=== PATIENT | female | born 1965 | race African-American/Black ===

== ENCOUNTER 2019-08-17 20:16 | Inpatient (IN) | payer BC, OTHER ==
[2019-08-17] MEDS ORDERED: Acetaminophen 500 MG TAB ONE ×2 (20:32→20:36)
[2019-08-17] MEDS ORDERED: Adacel (T-DAP) 0.5 ML SYRINGE ONE (20:32)
[2019-08-17] MEDS ORDERED: Bacitracin 1 PK ONE (20:58)
[2019-08-17] MEDS ORDERED: Lidocaine 1% w/Epinephrine 1:100K 20 ML VIAL ONE (20:58)
[2019-08-17] MEDS ORDERED: Lidocaine 1% (PF) 30 ML VIAL ONE (21:00)
--- NOTE | 2019-08-17 21:09 | RAD ---
XR Hand Lt 3 View STANDARD: 08/17/2019 8:27 PM CLINICAL INDICATION: Fall while running COMPARISON: None. FINDINGS: Bones: No acute osseous abnormality. Joints: Joint spaces are preserved. Soft Tissue: Soft tissues are normal appearing. IMPRESSION: No acute osseous abnormality..
--- NOTE | 2019-08-17 21:10 | RAD ---
Chest AP view INDICATION: Fall while running with chest pain COMPARISON: None FINDINGS: Lungs: The lungs are clear Cardiac silhouette: The cardiomediastinal silhouette appears within normal limits. Pulmonary vasculature: Normal Pleural spaces: No pleural effusion or pneumothorax is demonstrated. Upper abdomen: No abnormality seen. Osseous structures: No acute osseous abnormality. Additional findings: None. IMPRESSION: No acute cardiopulmonary abnormality.
--- NOTE | 2019-08-17 21:12 | RAD ---
EXAM: XR Humerus Lt 2 View STANDARD DATE: 08/17/2019 8:29 PM INDICATION: Fall while running COMPARISON: None. FINDING: There is a comminuted, mild to moderately displaced for part proximal humerus fracture. The humeral head articular surface is rotated 90 degrees cephalad. The greater tuberosity is fractured into 2 separate fragments and are mildly displaced. No additional fracture is grossly evident. IMPRESSION:Comminuted, four-part proximal left humerus fracture
[2019-08-17] MEDS ORDERED: Ketorolac Tromethamine 30 MG/ML VIAL ONE (22:16)
[2019-08-17 22:21] LABS: #Basophils 0.1 thou/uL (0.0-0.2); #Eosinphils 0.1 thou/uL (0.0-0.7); #Lymphocytes 1.7 thou/uL (1.20-3.40); #Monocytes 0.3 thou/uL (0.11-0.59); #Neutrophils 3.8 thou/uL (1.40-6.50); %Basophils 0.9 % (0.0-1.0); %Eosinophils 1.3 % (0.0-10.0); %Neutrophils 64.7 % (42.0-75.0); Hemoglobin 12.8 g/dL (12.0-16.0); Mean Corpuscular HGB CONC 32.1 g/dL (32.0-36.0); Mean Corpuscular Hemoglobin 27.3 pg (27.0-31.0); Mean Corpuscular Volume 85.2 fL (78.0-98.0); Mean Platelet Volume 8.3 fL (7.4-10.4); Platelet Count 208 thou/uL (130-400); RBC Distribution Width 11.9 % (11.5-14.5); Red Blood Cell (RBC) Count 4.67 mill/uL (4.20-5.40); White Blood Cell (WBC) Count 5.9 thou/uL (4.8-10.8)
[2019-08-17 22:26] LABS: INR-International Normal Ratio 0.9; PTT 26.3 sec (22.9-36.1); Prothrombin Time 12.4 sec (12.0-14.7)
[2019-08-17 22:28] LABS: BHCG - Serum Negative (NEGATIVE); Pregs Control Background? CLEAR/WHITE (CLR/WHITE); Pregs Control Bar Appear? YES (CONTROL BAR)
--- NOTE | 2019-08-17 22:36 | HP ---
REQUESTING PHYSICIAN: Mode Pisano DO ATTENDING SURGEON: Abdullahi Mcconnell MD CONSULTATIONS: Orthopedics, Naren Billingsley MD HISTORY OF PRESENT ILLNESS: The patient is a 54-year-old woman, who was running when she caught her foot on an uneven piece of sidewalk, falling forward on her left outstretched hand. She denied any loss of consciousness, but did experience immediate pain to her left hand and left shoulder. The patient was brought to the Emergency Department by privately owned vehicle, where she underwent evaluation and examination and was noted to have laceration to her left small finger on the palmar surface and the palmar aspect of her left hand. She is right-hand dominant. She also had fracture to the proximal humerus at which time, we were asked to evaluate the patient for admission and obtain Orthopedic consultation. The patient underwent irrigation and suturing of her lacerations in the Emergency Department. She received a tetanus and 2 g of Ancef. ALLERGIES: NONE. CURRENT MEDICATIONS: 1. Coreg. 2. Benicar. 3. Lipitor. PAST MEDICAL HISTORY: Hypertension and hyperlipidemia. PAST SURGICAL HISTORY: Tubal ligation. SOCIAL HISTORY: The patient denies drug, tobacco, or alcohol use. 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 REVIEW OF SYSTEMS: Negative as otherwise stated. PHYSICAL EXAMINATION: VITAL SIGNS: Blood pressure is 152/92, heart rate 72, respirations 18, oxygen saturation is 100% on room air, and temperature is 98.4. GENERAL: The patient is resting comfortably in bed. She is awake, alert, and oriented x3. Flor Coma Scale is 15. She is currently undergoing repair of her lacerations on her left hand. HEENT: Head is normocephalic and atraumatic. Eyes, extraocular motion intact. PERRLA bilaterally. Ears are atraumatic without discharge. Nose is atraumatic without discharge oropharynx is clear. NECK: Nontender. Trachea is midline with no JVD. CHEST: Clear to auscultation with good inspiratory and expiratory effort. HEART: Regular rate and rhythm. ABDOMEN: Soft, flat, and nontender with active bowel sounds. EXTREMITIES: Neurovascularly intact x4. Left upper extremity has tenderness to palpation to the shoulder area consistent with her proximal humerus fracture. Her left hand on the palmar aspect has approximately 4 cm laceration at the thenar eminence and a laceration to the proximal small finger digit overlying the proximal phalanx. She is neurovascularly intact in this extremity. BACK: Atraumatic and nontender. LABORATORY DATA: Labs are pending. RADIOGRAPHS: AP chest x-ray shows no acute cardiopulmonary abnormality. Views of the left humerus show a comminuted 4-part proximal humerus fracture. Views of the left hand show no acute osseous abnormality. ASSESSMENT AND PLAN: 1. Status post ground level fall while running. 2. Left proximal humerus fracture. 3. Laceration to hand x2, repaired in the Emergency Department. 4. Acute pain secondary to above. 5. History of hyperlipidemia and hypertension. Plan will be to admit the patient to the surgical floor. We make her n.p.o. after midnight. We will do pain control, pulmonary toilet, gastritis and mechanical venous thromboembolism prophylaxis. The patient will have her left upper extremity placed in the sling. She will be made n.p.o. after midnight. She will be evaluated by Orthopedics in the morning with likely a surgical plan for tomorrow. Dr. Billingsley has been notified. The evaluation, examination, laboratory, and radiographic findings will be discussed with Dr. Mcconnell after this dictation. Job ID: [id number]
[2019-08-17] MEDS ORDERED: Morphine 2 MG/ML SYRINGE ONE (22:40)
[2019-08-17 22:44] LABS: ALT (SGPT) 30 U/L (8-55); AST (SGOT) 51 U/L (5-34); Albumin 4.3 g/dL (3.5-5.0); Alkaline Phosphatase 80 U/L (40-110); Anion Gap 13 mmol/L (10-20); BUN (Urea Nitrogen) 11 mg/dL (9.8-20.1); Bilirubin, Total 0.5 mg/dL (0.2-1.2); Calc. Creatinine Clearance 0 mL/min (70-130); Calcium 9.9 mg/dL (7.8-10.44); Carbon Dioxide 28 mmol/L (22-29); Chloride 106 mmol/L (98-107); Estimated GFR-MDRD 67; Globulin 2.9 g/dL (2.4-3.5); Glucose 100 mg/dL (70-105); Potassium 3.6 mmol/L (3.5-5.1); Protein, Total 7.2 g/dL (6.0-8.3); Sodium 143 mmol/L (136-145)
[2019-08-17] MEDS ORDERED: Carvedilol 6.25 MG TAB PO SCH (23:00)
[2019-08-17] MEDS ORDERED: Morphine 4 MG/ML VIAL ONE (23:06)
[2019-08-17] MEDS ORDERED: Morphine 2 MG/ML VIAL SLOW IVP PRN (23:40)
[2019-08-17] MEDS ORDERED: traMADol HCl 50 MG TAB PO PRN ×2 (23:40)
[2019-08-17] MEDS ORDERED: Morphine 4 MG/ML VIAL SLOW IVP PRN (23:40)
[2019-08-17] MEDS ORDERED: Ondansetron ODT 4 MG TAB PO PRN (23:40)
[2019-08-17] MEDS ORDERED: Cyclobenzaprine 10 MG TAB PO PRN (23:40)
[2019-08-17] MEDS ORDERED: Dextrose 50% Abboject 50 ML SYRINGE SLOW IVP PRN (23:40)
[2019-08-17] MEDS ORDERED: Ondansetron PF 4 MG/2 ML Vial IVP PRN (23:40)
[2019-08-17] MEDS ORDERED: Dextrose 5% in Water 1,000 ML IV PRN (23:40)
[2019-08-17 23:46] VITALS: BMI 23.4
[2019-08-17] MEDS ORDERED: Acetaminophen 500 MG TAB PO SCH (23:59)
[2019-08-18] MEDS: Sodium Chloride 0.9% 1,000 ML IV SCH ×3 (00:21→09:18)
[2019-08-18] MEDS ORDERED: Acetaminophen 325 MG TAB PO SCH (00:30)
[2019-08-18] MEDS ORDERED: HYDROcodone/Acetaminophen 10/325 mg Tablet PO PRN ×2 (01:27)
[2019-08-18] MEDS ORDERED: hydrALAZINE 20 MG/ML VIAL SLOW IVP PRN (04:04)
[2019-08-18 05:53] LABS: #Lymphocytes 1.2 thou/uL (1.20-3.40); #Monocytes 0.4 thou/uL (0.11-0.59); #Neutrophils 5.9 thou/uL (1.40-6.50); %Basophils 0.3 % (0.0-1.0); %Eosinophils 0.1 % (0.0-10.0); %Lymphocytes 16.3 % (21.0-51.0); %Monocytes 4.8 % (0.0-10.0); %Neutrophils 78.4 % (42.0-75.0); Hemoglobin 12.2 g/dL (12.0-16.0); Mean Corpuscular HGB CONC 32.8 g/dL (32.0-36.0); Mean Corpuscular Hemoglobin 27.8 pg (27.0-31.0); Mean Corpuscular Volume 84.7 fL (78.0-98.0); Mean Platelet Volume 8.3 fL (7.4-10.4); Platelet Count 211 thou/uL (130-400); RBC Distribution Width 11.9 % (11.5-14.5); Red Blood Cell (RBC) Count 4.41 mill/uL (4.20-5.40); White Blood Cell (WBC) Count 7.5 thou/uL (4.8-10.8)
[2019-08-18] MEDS ORDERED: Ibuprofen 600 MG TAB PO SCH (06:00)
[2019-08-18 06:08] LABS: Anion Gap 12 mmol/L (10-20); BUN (Urea Nitrogen) 10 mg/dL (9.8-20.1); Calc. Creatinine Clearance 90 mL/min (70-130); Carbon Dioxide 22 mmol/L (22-29); Chloride 107 mmol/L (98-107); Estimated GFR-MDRD Greater than 90; Glucose 133 mg/dL (70-105); Magnesium 1.6 mg/dL (1.6-2.6); Phosphorus 2.7 mg/dL (2.3-4.7); Potassium 3.9 mmol/L (3.5-5.1); Sodium 137 mmol/L (136-145)
[2019-08-18] MEDS: Acetaminophen 325 MG TAB PO SCH ×4 (06:24→23:02)
--- NOTE | 2019-08-18 08:40 | CON ---
DATE OF CONSULTATION: CHIEF COMPLAINT: Left shoulder and hand pain. HISTORY OF PRESENT ILLNESS: Ms. Ruff is a 54-year-old female, who was out running yesterday evening when she tripped and fell. She fell forward. She landed on her left outstretched arm. She has lacerations over her hand, possibly from a nail that was protruding from a board that she landed on. She also has a proximal humerus fracture. She has been admitted to the hospital. She is having pain control. She is resting comfortably. She is right-hand dominant. She has had a previous right proximal humerus fracture. The patient is in a sling. She has been in good health until this happened. She is very active, exercising, running, and swimming. PAST MEDICAL HISTORY: The patient denies active medical problems. Hypertension and hyperlipidemia. PAST SURGICAL HISTORY: Tubal ligation. ALLERGIES: NO KNOWN DRUG ALLERGIES. FAMILY MEDICAL HISTORY: Noncontributory. REVIEW OF SYSTEMS: Positive for left shoulder and hand pain. Otherwise, negative 10-point review of systems. No chest pain or shortness of breath. SOCIAL HISTORY: The patient denies tobacco, alcohol, or drug use. PHYSICAL EXAMINATION: VITAL SIGNS: Temperature is 98, pulse is 68, blood pressure is 160/106, and oxygen saturations 98%. GENERAL: She is alert and oriented, in no apparent distress. RESPIRATORY: Breathing comfortably. ABDOMEN: Soft, nontender, and nondistended. MUSCULOSKELETAL: The patient's left upper extremity has lacerations over the palm and fifth digit. These have been closed and cleansed in the emergency department. She is able to move the digits. She reports feeling normal sensation in the hand and wrist. She is able to flex and extend the wrist. She has swelling of the shoulder. There is a sling in place. She is unable to actively move the shoulder. IMAGING STUDIES: X-rays of the left humerus and shoulder demonstrate a 3- or possibly 4-part proximal humerus fracture. There is impaction and rotation of the articular surface. There is displacement of the tuberosity posteriorly and superiorly. IMPRESSION: Multipart, likely 4-part proximal humerus fracture in a 54-year-old female, also with hand lacerations. PLAN: At this point, I have the discussion with the patient regarding treatment options. I think she will require surgical treatment for this given that she has a displaced and multi-fragment proximal humerus fracture. She is a healthy and very active person and wants to obtain the best function possible out of her shoulder. I would recommend open reduction and internal fixation as our first-line treatment. I am hopeful that the bone quality is such that we can repair the fracture with a plate and screw construct. I did warn her that if there is not enough bone or there are too many fragments to hold screw fixation, we would need to perform a hemiarthroplasty of the shoulder. I think this would be unlikely. She will have antibiotics on-call to the operating room. She is aware of risks and benefits. We will obtain a preoperative CT scan to help with planning. She will use her sling and pain control for now. I would like to keep her in the hospital overnight and discharge tomorrow. Job ID: [id number]
[2019-08-18] MEDS: Losartan 25 MG TAB PO SCH (09:18)
[2019-08-18] MEDS: Carvedilol 6.25 MG TAB PO SCH ×2 (09:18→20:14)
--- NOTE | 2019-08-18 10:19 | RAD ---
Exam:Left shoulder 2 views HISTORY: Fracture. COMPARISON: None FINDINGS: Displaced fracture involving the humeral head. There is anterior-inferior dislocation of th e humeral head with respect to the glenoid. IMPRESSION: Fracture-dislocation.
--- NOTE | 2019-08-18 10:21 | CT ---
CT LEFT SHOULDER PERFORMED WITHOUT CONTRAST ENHANCEMENT: Date: 08/18/2019 HISTORY: Complex humeral fracture. Evaluation for surgery. COMPARISON: Prior day's plain film examination. FINDINGS: Comminuted humeral head fracture is noted. The greater tuberosity fracture is avulsed. The humeral he ad articular surface is rotated and the main component of the articular surface appears to be rotated more in an anterior and cephalad direction. There are small comminuted fragments seen anteriorly. Th e fracture of the greater tuberosity extends to the bicipital groove region where there is a small inna ny fragment. IMPRESSION: Comminuted humeral head fracture. The main component of the articular surface appears to be rotated a nteriorly and cephalad. Humeral head is subluxed inferiorly. POS: NASH
[2019-08-18] MEDS ORDERED: EPHEDRINE 25 MG/5 ML SYRINGE ONE (11:29)
[2019-08-18] MEDS ORDERED: Lidocaine 1% PF 5 ML VIAL ONE (11:29)
[2019-08-18] MEDS ORDERED: Ropivacaine 0.2% HCl/PF (40 MG/20 ML VIAL) ONE (11:29)
[2019-08-18] MEDS ORDERED: Glycopyrrolate 0.2 MG/ML 5 ML SYRINGE ONE (11:29)
[2019-08-18] MEDS ORDERED: PHENYLEPHRINE-NS 100 MCG/ML 10 ML SYRINGE ONE (11:29)
[2019-08-18] MEDS ORDERED: PROPOFOL 200 MG/20 ML VIAL ONE (11:29)
[2019-08-18] MEDS ORDERED: Ropivacaine 0.5% HCl/PF (150 MG/30 ML VIAL) ONE (11:29)
[2019-08-18] MEDS ORDERED: CEFAZOLIN 2 GM in Premix Bag 1 BAG IVPB SCH (12:30)
[2019-08-18] MEDS ORDERED: Midazolam HCl 2 mg/2 ml Vial ONE (12:51)
[2019-08-18] MEDS ORDERED: Fentanyl 100 MCG/2 ML VIAL ONE ×2 (12:51→13:46)
[2019-08-18] MEDS ORDERED: Ropivacaine 0.2% 550 ML 550 ML NERVE BLCK SCH (13:15)
[2019-08-18] MEDS ORDERED: Ondansetron PF 4 MG/2 ML Vial IVP PRN (13:15)
[2019-08-18] MEDS ORDERED: traMADol HCl 50 MG TAB PO PRN ×2 (13:15)
[2019-08-18] MEDS ORDERED: HYDROcodone/Acetaminophen 5/325 mg Tablet PO PRN ×2 (13:15)
[2019-08-18] MEDS ORDERED: Promethazine HCl 25 MG/ML VIAL IM PRN (13:15)
[2019-08-18] MEDS ORDERED: Ketorolac Tromethamine 30 MG/ML VIAL IVP PRN (13:15)
[2019-08-18] MEDS ORDERED: Zolpidem Tartrate 5 MG TAB PO PRN (13:15)
--- NOTE | 2019-08-18 16:31 | OP ---
DATE OF PROCEDURE: 08/18/2019 OPERATION PERFORMED: Open reduction and internal fixation of left proximal humerus 4-part fracture. PREOPERATIVE DIAGNOSIS: Left proximal humerus 4-part fracture. POSTOPERATIVE DIAGNOSIS: Left proximal humerus 4-part fracture. COMPLICATIONS: None. ESTIMATED BLOOD LOSS: 200 mL. DIVING COACH: Fabricio Morley PA-C. IMPLANTS: Synthes proximal humeral plate with multiple locking and nonlocking screws. INDICATIONS: Ms. Ruff is a 54-year-old female who fell while running and fractured her proximal humerus. She has been found to have a displaced impacted 4-part fracture. She has been indicated for open reduction and internal fixation to restore anatomic alignment and promote healing. Risks to include wound complication, infection, nerve or vascular injury, nonunion, malunion, posttraumatic arthritis, need for hardware removal, and others. DESCRIPTION OF OPERATION: Ms. Ruff was identified in the preoperative holding area. Her correct extremity was marked. She was carried to the operating room. She was positioned supine. General anesthesia was induced. A multidisciplinary time-out was performed. The left upper extremity was prepped and draped in sterile fashion. We began the procedure with a deltopectoral approach to the shoulder. We dissected down through the subcutaneous tissues through the fascia to the deltopectoral interval. We protected the cephalic vein. The deltopectoral interval was developed and entered. This allowed exposure of the underlying clavipectoral fascia. We retracted the conjoined tendon and exposed the underlying proximal humerus fracture. We cleared bursal tissue. At this point, we placed sutures in the rotator cuff including the subscapularis as well as supraspinatus and infraspinatus. We then elevated the lesser tuberosity fragment, allowing exposure of the underlying humeral head. The humeral head was elevated back into its anatomic position and held with K-wires. We then backfilled the large defect with cancellous bone chips. Next, we brought the posterior and greater tuberosity back around to its footprint. We tied sutures, closing down the tuberosities and then applied a Synthes proximal humeral plate. Multiple screws were placed in the plate proximally and distally. We had good fixation. We then tied multiple Ethibond sutures through holes in the plate, securing the rotator cuff and tuberosities to the plate. We took final x-ray images in all planes. A sterile dressing was applied. The patient was taken to the recovery room at this point in good condition. Job ID: [id number]
[2019-08-18] MEDS ORDERED: Promethazine HCl 25 MG/ML VIAL ONE (16:33)
--- NOTE | 2019-08-18 18:13 | PRG ---
DATE OF SERVICE: 08/18/2019 SUBJECTIVE: The patient remains on the surgical floor. She is status post fall while running, which she sustained lacerations to her left palm and a proximal humerus fracture. She has been n.p.o. since midnight and she is awaiting surgery today. Dr. Billingsley has seen her and briefed her on the procedure. Her pain is controlled and that is helped significantly with her blood pressure, which is now normal. PHYSICAL EXAMINATION: VITAL SIGNS: Temperature is 98.2, heart rate 84, blood pressure 131/88, respirations 20, and oxygen saturations 99% on room air. GENERAL: The patient is resting comfortably in bed. She is sitting up, alert, appropriate, conversant. She appears in no distress. RESPIRATIONS: Nonlabored. EXTREMITIES: She is moving all 4 extremities freely. She has her left upper extremity immobilized in a sling. LABORATORY FINDINGS: White blood cell count 7.5, hemoglobin 12.2, hematocrit 37.4, platelets 211. Sodium 137, potassium 3.9, chloride 107, CO2 of 22, BUN 10, creatinine 0.74, glucose 133, magnesium 1.6, phosphorus 2.7. There are no radiographs to review this morning. ASSESSMENT/PLAN: 1. Status post fall while running. 2. Lacerations to left hand x2, repaired in the emergency department. 3. Left proximal humerus fracture, awaiting surgery. 4. Acute pain secondary to above, improved, controlled. 5. History of hypertension and hyperlipidemia. PLAN: Plan will be to continue n.p.o. status, awaiting surgery. Postoperatively, we will begin physical and occupational therapy. Due to the patient's health, she will likely be able to be discharged home. This will be reassessed again after surgery. The patient was evaluated this morning with Dr. Hill during rounds. Job ID: [id number]
--- NOTE | 2019-08-18 19:45 | RAD ---
XR Shoulder Lt 2 View: 08/18/2019 12:00 AM CLINICAL INDICATION: ORIF of left shoulder. COMPARISON: Prior humeral radiographs of the left upper extremity dated August 17, 2019 FINDINGS: 2 fluoroscopic spot images were submitted of the left shoulder Bones: There is been interval open reduction and internal fixation of the comminuted left proximal hu merus fracture. Fracture alignment is near anatomic. Instrumentation projects in the expected position. Glenohumeral joint: Normal alignment. AC joint: Normal alignment. Visualized lung: Clear. Soft tissues: Within normal limits. Total fluoroscopic time was 12.6 seconds. Total exposure was 0.74 mGy. IMPRESSION: ORIF of comminuted proximal left humerus fracture
[2019-08-18] MEDS: CEFAZOLIN 2 GM in Premix Bag 1 BAG IVPB SCH (20:13)
[2019-08-18] MEDS ORDERED: Losartan 25 MG TAB PO SCH (21:00)
[2019-08-18] MEDS ORDERED: Atorvastatin Calcium 10 MG TAB PO SCH (21:00)
[2019-08-19] MEDS: CEFAZOLIN 2 GM in Premix Bag 1 BAG IVPB SCH (03:44)
[2019-08-19] MEDS: Acetaminophen 325 MG TAB PO SCH ×3 (05:03→19:39)
[2019-08-19] MEDS: Losartan 25 MG TAB PO SCH (09:02)
[2019-08-19] MEDS: Carvedilol 6.25 MG TAB PO SCH (09:02)
[2019-08-19] MEDS ORDERED: Ibuprofen 600 MG TAB PO PRN (12:17)
[2019-08-19] MEDS ORDERED: Ibuprofen 600 MG TAB PO SCH (14:00)
[2019-08-19 16:04] VITALS: BP 139/90; TEMP 98.7
[2019-08-19] MEDS ORDERED: Gabapentin 300 MG CAP PO SCH (21:00)
== END 2019-08-19 19:47 | disposition home or self-care (01) | DRG 494 ==
LOC: ERS 20:16 → EEVIPCON 20:16 → SURG A 23:38
PROVIDERS: ADMIT Surgery; ATTEND Surgery
PROC: 3E0234Z Introduction of Serum, Toxoid and Vaccine into Muscle, Percutaneous Approach (ICD-10-PCS; 2019-08-17)
PROC: 0HQGXZZ Repair Left Hand Skin, External Approach (ICD-10-PCS; 2019-08-17)
PROC: 0PHD04Z Insertion of Internal Fixation Device into Left Humeral Head, Open Approach (ICD-10-PCS; principal; 2019-08-18)
DX: S42.292A Other displaced fracture of upper end of left humerus, initial encounter for closed fracture (principal); E78.5 Hyperlipidemia, unspecified; I10 Essential (primary) hypertension; W17.89XA Other fall from one level to another, initial encounter; S61.412A Laceration without foreign body of left hand, initial encounter; Z11.59 Encounter for screening for other viral diseases; Y92.480 Sidewalk as the place of occurrence of the external cause; Z79.899 Other long term (current) drug therapy; Z98.51 Tubal ligation status; Z23 Encounter for immunization
CPT/HCPCS: 36415; 71045; 76000; 80048; 80053; 83735; 84100; 84703; 85025; 85610; 85730; 90715; 93005; A4306; C1713; J0360; J0690; J1885; J2001; J2250; J2270; J2405; J2550; J2704; J2795; J3010; U0002